=== PATIENT | female | born 1960 | race Hispanic/Latino ===

== ENCOUNTER 2020-08-25 14:56 | Outpatient (CLI) | payer SELFPAY ==
--- NOTE | ~2020-08-25 | MM_ITS ---
EXAMINATION: MM screening [facility] BI w jayson HISTORY: Screening mammogram TECHNIQUE: Craniocaudal and mediolateral oblique 3-D tomosynthesis images were obtained and synthetic 2-D images were generated. CAD analysis was submitted and interpreted. COMPARISON: 10/01/2018, 04/16/2017, 09/15/2015 BREAST PARENCHYMAL COMPOSITION: There are scattered areas of fibroglandular density. FINDINGS: There is no evidence of suspicious mass, calcification, or architectural distortion to sugg est malignancy in either breast. There has been no suspicious interval change. IMPRESSION: 1. No mammographic evidence of malignancy. 2. Recommend routine screening mammography in one year. BI-RADS Category 1: Negative Reviewed, dictated and finalized at location A.
== END 2020-08-25 14:57 | disposition home or self-care (01) ==
PROVIDERS: PCP Physician Assistant; Visit Provider Physician Assistant
DX: Z12.31 Encounter for screening mammogram for malignant neoplasm of breast (principal)
CPT/HCPCS: 77063; 77067

== ENCOUNTER 2025-07-18 10:18 | Outpatient (CLI) | payer MEDICARE, SELFPAY ==
--- OUTSIDE RECORDS SUMMARY | 2017-06-12 06:00 | XMS_ITS | Continuity of Care Document ---
Author Organization [facility] Address [address] [facility] [place] [address] Phone Care Team Providers Care Security Architect Name Role Phone Kal David MD Unavailable Unavailable Allergies, Adverse Reactions, Alerts Substance Reaction Status Criticality codeine Active No Information Medications Medication Instructions Dosage Effective Dates (start - stop) Status Comments omeprazole 20 mg capsule,delayed release take 1 capsule by oral route every day before a meal 20 MG - Active Mobic 15 mg tablet take 1 tablet by ora l route every day - Active Procedures Procedure Date OFFICE/OUTPATIENT VISIT, EST PREV VISIT, EST, AGE 40-64 PREV VISIT, EST, AGE 40-64 OFFICE/OUTPATIENT VISIT, EST PREV VISIT, EST, AGE 40-64 OFFICE/OUTPATIENT VISIT, EST OFFICE/OUTPATIENT VISIT, EST PREV VISIT, EST, AGE 40-64 Advance Directives Directive Yes / No Effective Date File Name No Information Encounters Encounter Description Practice Location Reason(s) For Visit Diagnoses Date Provider Providers Copied on Encounter OFFICE/OUTPA TIENT VISIT, EST [facility], [address], [id number], [place] tel:[phone] [facility] numbness1 (chief complaint) GERD1 (chief complaint) UTI1 (chief complaint) hand pain1 (chief complaint) GERD w/o esophagitisMeralgia paresthetica, left lower limbPrimary osteoarthritisUrina ry tract infection 0201 7 Frankie Bowden. [address], [id number] , [place]. tel:[phone] Referring Provider: Kal David [address], [place], [place], [address]. tel:[phone] [facility], [address], [place], [place], [address], [place] tel:[phone] [facility] No Information 7 Frankie Bowden. [address], [place], [place], [address] , [place]. tel:[phone] PREV VISIT, EST, AGE 40-64 [facility], [address], [place], [place], [address], [place] tel:[phone] [facility] PHysical (chief complaint) Encntr for general adult medical exam w/o abnormal findings 7 Frankie Bowden. [address], [place], [place], [address] , [place]. tel:[phone] Referring Provider: Brannon Corbin [address], [place], [place], [address]. tel:[phone] PREV VISIT, EST, AGE 40-64 [facility], [address], [place], [place], [address], [place] tel:[phone] [facility] Physical (chief complaint) Dietary surveillance and counselingRoutine medical exam 5 Frankie Bowden. [address], [place], [place], [address] , [place]. tel:[phone] Referring Provider: Brannon Corbin [address], [place], [place], [id number]. tel:[phone] OFFICE/OUTPA TIENT VISIT, EST [facility], [address], [place], [place], [address], [place] tel:[phone] [facility] abdominal pain (chief complaint) GERD (chief complaint) Abdominal PainUnspecified chronic liver disease without mention of alcoholDietary surveillance and counselingOther specified disorders of gallbladderDivertic ulosis of small intestine (without mention of hemorrhage) 4 Frankie Bowden. [address], [place], [place], [address] , [place]. tel:[phone] Referring Provider: Brannon Corbin [address], [place], [place], [address]. tel:[phone] PREV VISIT, EST, AGE 40-64 [facility], [address], [place], [place], [address], [place] [phone] [facility] PHysical (chief complaint) Dietary surveillance and counselingRoutine Medical ExamRoutine Medical Exam 3 Frankie Bowden. [address], [place], [place], [address] , [place]. tel:[phone] Referring Provider: Brannon Corbin [address], [place], [place], [address]. tel:[phone] OFFICE/OUTPA TIENT VISIT, EST [facility], [address], [place], [place], [address], [place] tel:[phone] [facility] abdominal pain (chief complaint) Dietary surveillance and counselingAbdominal PainOther specified disorders of gallbladderGERD 3 Frankie Bowden. [address], [place], [place], [address] , [place]. tel:[phone] Referring Provider: Brannon Corbin [address], [place], [place], [address]. tel:[phone] OFFICE/OUTPA TIENT VISIT, EST [facility], [address], [place], [place], [address], [place] [phone] [facility] GERD (chief complaint) well woman (chief complaint) Abdominal PainDietary surveillance and counselingGynecolog ical Examination 3 Frankie Bowden. [address], [place], [place], [address] , [place]. tel:[phone] Referring Provider: Brannon Corbin [address], [place], [place], [address]. tel:[phone] PREV VISIT, EST, AGE 40-64 [facility], [address], [place], [place], [address], [place] tel:[phone] [facility] physical (chief complaint) Dietary surveillance and counselingRoutine Medical ExamRoutine Medical Exam 0-201 2 Frankie Bowden. [address], [place], [place], [address] , [place]. [phone] Referring Provider: Kal David, [address], [place], [place], [address]. tel:[phone] Family History Family Member Type Diagnosis Age At Onset Mother Problem (finding) Coronary artery disease Brother Problem (finding) Alive and well Father Problem (finding) Alive and well Payers Payer name Insurance type Covered constitution party ID Authoriza tion(s) No Information Social History Type Description Quantity Date Captured Comments Alcohol Use Details No Caffeine Use Details Unknown Tobacco Use Status Never smoked tobacco 2016 Smoking Status Never smoker Sex Female Vital Signs Date / Time: Height Weight BMI Pulse Rate Blood Pressure Temperature Respiratory Rate Body Surface Area Head Circumference BMI percentile Pulse Ox Inhaled Ox 12:19 PM 160.02 cm 182.60 lbs 32.3 5 kg/m eter (2) 75 /min 135/78 mm[Hg] 98.6 F 16 /min Chief Complaint And Reason For Visit From encounter dated '06/12/2017 11:00'. numbness1 (chief complaint). Description: Pt has chronic left lateral upper thign and leg numbness and tingling. Pt denies any low back pain. Pt denies nay scaiatica. Pt denies any loss of bladder control. GERD1 (chief complaint). Description: Pt states that the sour taste in her mouth resolved with omeprazole. Pt denies any abd pain. Pt wants to continue omeprazole UTI1 (chief complaint). Description: Pt denies any UTI symptoms. Pt did not take amoxil. Pt states that pelvic pain resolved. Pt denies and vaginal discharge. Pt has some pelvc venous insufficiency on CT scan. hand pain1 (chief complaint). Description: pt has bilateral hand pain. Pt has arthritis. Pt denies any hand swelling or numbness or tingling or any weakness. Plan Of Treatment Date Type Action Status Goal Depression screening. Due on due Goal Sigmoidoscopy. Due on due Goal Pap/HPV testing. Due on due Goal FOBT. Due on due Goal Tdap. Due on due Goal Td vaccine. Due on due Goal Influenza vaccine. Due on due Goal FOBT. Due on due Goal Sigmoidoscopy. Due on due Goal Td vaccine. Due on due Goal Influenza vaccine. Due on due Goal Tdap. Due on due Goal Depression screening. Due on due Goal Pap/HPV testing. Due on due Goal Depression screening. Due on due Goal FOBT. Due on due Goal Influenza vaccine. Due on due Goal Pap/HPV testing. Due on due Goal Sigmoidoscopy. Due on due Goal Td vaccine. Due on 15 due Goal Tdap. Due on due Referral Ordered: CT ABDOMEN&PELVIS W/CONTRAST ordered Referral Ordered: HAND XRAY, TWO VIEW ordered Referral Ordered: UPPER GI W/ KUB ordered Referral Ordered: MAMMOGRAM, SCREENING ordered Referral Ordered: US EXAM, ABDOM, COMPLETE ordered Referral Ordered: MAMMOGRAM, BOTH BREASTS ordered Referral Ordered: COLONOSCOPY AND BIOPSY ordered History Of Present Illness Encounter Date Complaint History Of Prese nt Illness UTI1 Pt denies any UT I symptoms. Pt did not take amoxil. Pt states that pelvic pain resolved. Pt denies and vaginal discharge. Pt has some pelvc venous insufficiency on CT scan. hand pain1 pt has bilateral hand pain. Pt has arthritis. Pt denies any hand swelling or numbness or tingling or any weakness. GERD1 Pt states that t he sour taste in her mouth resolved with omeprazole. Pt denies any abd pain. Pt wants to continue omeprazole numbness1 Pt has chronic l eft lateral upper thign and leg numbness and tingling. Pt denies any low back pain. Pt denies nay scaiatica. Pt denies any loss of bladder control. PHysical Pt needs annual physical. pt c/o intermittent crampy pelvic pain for at least 6 months. Pt states that sometimes her left leg feels numbness from the pelvic pain. Pt denies any edema. Pt denies any back pain. Pt denies any loss of bladder control. Pt denies any sciatica. Pt also c/o hand pain and foot pain. Pt has arthritis per podiatry. Pt takes celebrex PRN. . Pt denies any hand numnbess or weakness. Pt denies any upper abdominal pain. Pt denies any GERD symptoms. Pt told me she had GERD related abd pain several years ago but current pelvic pain is different in nature. Pt states that her finger joint sometimes get sitff and she has hard time moving the fingers, Pt feels sour taste in her mouth in the morning time . Pt takes about 10 celebrex per month for her joint pain Physical Pt needs annual physical. Pt c/o allergy symptoms. Pt c/o sneezing and sinus congestion and itchy eyes in the morning and night for several months. Pt denies any sore throat or cough. Pt has GERD symptoms, which protonix used to help. Pt has been out of meds for a while. Pt denies any abd pain. Pt only has GERD symptoms intermittently, not daily. Pt also notices some upper shoudler and lower neck pain for several months. pt denies any injuryl. Pt has been holding her grandchild a lot recently. Pt notices some dullache. Pt denies any other complaints Instructions Date Instruction Additional Infor mation Elevate head of bed prior to sle ep Related to GERD w/o esophagitis Eat smaller meals, n o eating three hours prior to bedtime Related to GERD w/o esophagitis Prescribed Activity and Exercise Education Related to Dietary Surveillance and Counseling Prescribed Diet Educ ation/Lifestyle Education Regarding Diet Related to Dietary Surveillance and Counseling Avoid provocative fo ods: citrus, alcohol, coffee, chocolate, mints Related to GERD w/o esophagitis Prescribed Diet Educ ation/Lifestyle Education Regarding Diet Related to Dietary Surveillance and Counseling Prescribed Activity and Exercise Education Related to Dietary Surveillance and Counseling Prescribed Activity and Exercise Education Related to Dietary Surveillance and Counseling Prescribed Diet Educ ation/Lifestyle Education Regarding Diet Related to Dietary Surveillance and Counseling Dietary counseling Related to Di etary surveillance counseling Decrease caloric intake Related to Dietary surveillance counseling Decrease caloric intake Related to Dietary surveillance counseling Dietary counseling Related to Di etary surveillance counseling Dietary counseling Related to Di etary surveillance counseling Decrease caloric intake Related to Dietary surveillance counseling Dietary counseling Related to Di etary surveillance counseling Decrease caloric intake Related to Dietary surveillance counseling Dietary counseling Related to Di etary surveillance counseling Decrease caloric intake Related to Dietary surveillance counseling Assessments Type Assessment Date assessment GERD w/o esophagitis assessment Meralgia paresthetica, left lowe r limb assessment Primary osteoarthritis 17 assessment Urinary tract infection 017 Mental Status Date Cognitive Assessment Orientation - [place] ed to time, place, person, situation.
--- NOTE | ~2025-07-18 | DEXA_ITS ---
Bone Density Report Name: CARMEN ELAM Age: 65 Sex: Female Ethnicity: White Date of : 1960 Indication: postmenopausal; screening for osteoporosis; height loss; Referring Provider: BARRIE, ARELY Study: Bone densitometry was performed. Exam Date: July 18, 2025 Accession number: [id number] Bone Density: Region BMD T-score Z-score Classification AP Spine(L1-L4) 0.888 -1.4 0.3 Osteopenia Femoral Neck (Left) 0.610 -2.2 -0.6 Osteopenia Total Hip (Left) 0.817 -1.0 0.2 Normal Femoral Neck (Right) 0.646 -1.8 -0.3 Osteopenia Total Hip (Right) 0.860 -0.7 0.6 Normal Total Hip Mean 0.839 -0.9 0.4 Normal World Health Organization criteria for BMD impression classify patients as: Normal (T-score at or above -1.0), Osteopenia (T-score between -1.0 and -2.5), or Osteoporosis (T-score at or below -2.5). 10-year Fracture Risk(1): Major Osteoporotic Fracture 11% Hip Fracture 1.8% Reported Risk Factors: [place] (), Neck BMD=0.610, BMI=29.3 (1) FRAX(R) Version 3.08. Fracture probability calculated for an untreated patient. Fracture probability may be lower if the patient has received treatment. Clinical Information Provided by Patient: Has used the following medications: Vitamin D, baby aspirin Patient maximum height was 66 Menopause Age: 50 No regular weight bearing exercise Drinks caffeinated beverages Onset of menses at age 12 Number of children 6 Impression: The patient has low bone mass, based on the Left Femoral Neck T-score. The patient has an estimated ten-year risk of hip fracture of 1.8% and an estimated ten-year risk of major fracture of 11%, based on the WHO FRAX algorithm. Discussion: BONE DENSITY IS LOW AT ONE OR MORE SKELETAL SITES. This patient's lowest T-score is low at one or more skeletal sites. It meets the World Health Organization's (WHO) criteria for ?low bone mass? (T-score between -1.0 and -2.5). The patient's 10-year risk of fracture as calculated by FRAX is less than the threshold where pharmacological therapy is recommended by the National Osteoporosis Foundation (NOF). However, all treatment decisions require clinical judgment and consideration of individual patient factors, including patient preferences, comorbidities, previous drug use, risk factors not captured in the FRAX model (e.g., frailty, falls, vitamin D deficiency, increased bone turnover, interval significant decline in bone density) and possible under or overestimation of fracture risk by FRAX. The patient should follow a healthful lifestyle (good nutrition with adequate calcium and vitamin D, and appropriate weight-bearing exercise). Follow-Up: Consider repeating this study in 2 to 3 years to reassess this patient's status, or sooner if there is some new clinical indication. Reported by: SABA on 07/18/2025 11:09:00 AM. Reviewed, dictated and finalized at location A.
== END 2025-07-18 10:19 | disposition home or self-care (01) ==
PROVIDERS: PCP Physician Assistant; Visit Provider Physician Assistant
DX: M85.89 Other specified disorders of bone density and structure, multiple sites (principal); Z78.0 Asymptomatic menopausal state
CPT/HCPCS: 77080

== ENCOUNTER 2025-09-02 09:44 | Outpatient (CLI) | payer MEDICARE, SELFPAY ==
--- NOTE | ~2025-09-02 | MM_ITS ---
EXAMINATION: MM screening [facility] BI w jayson HISTORY: Screening TECHNIQUE: Craniocaudal and mediolateral oblique 3-D tomosynthesis images were obtained and synthetic 2-D images were generated. CAD analysis was submitted and interpreted. COMPARISON: 08/25/2020 BREAST PARENCHYMAL COMPOSITION: There are scattered areas of fibroglandular density. FINDINGS: There is no evidence of suspicious mass, calcification, or architectural distortion to suggest malignancy. There has been no suspicious interval change. IMPRESSION: 1. No mammographic evidence of malignancy. Recommend routine screening mammography in one year. BI-RADS Category 2: Benign finding(s) Reviewed, dictated and finalized at location Q. IMPRESSION: 1. No mammographic evidence of malignancy. Recommend routine screening mammogra phy in one year. BI-RADS Category 2: Benign finding(s)
== END 2025-09-02 09:45 | disposition home or self-care (01) ==
LOC: ANHFOHIMG 09:47
PROVIDERS: PCP Physician Assistant; Visit Provider Physician Assistant
DX: Z12.31 Encounter for screening mammogram for malignant neoplasm of breast (principal)
CPT/HCPCS: 77063; 77067